=== PATIENT | male | born 1955 | race African-American/Black ===

== ENCOUNTER 2024-03-08 13:34 | Outpatient (CLI) | payer MEDICARE | END 2024-03-08 13:35 | disposition home or self-care (01) | LOC: RAD 13:34 | PROVIDERS: ATTEND Internal Medicine | DX: R06.00 Dyspnea, unspecified (principal); J92.9 Pleural plaque without asbestos; R91.8 Other nonspecific abnormal finding of lung field | CPT/HCPCS: 71046 ==

== ENCOUNTER 2024-06-19 13:35 | Outpatient (CLI) | payer OTHER | END 2024-06-19 13:36 | disposition home or self-care (01) | LOC: BICCT 13:35 | PROVIDERS: ATTEND Internal Medicine | DX: R91.8 Other nonspecific abnormal finding of lung field (principal); J98.4 Other disorders of lung; I25.10 Atherosclerotic heart disease of native coronary artery without angina pectoris | CPT/HCPCS: 71250 ==